=== PATIENT | male | born 1955 | race African-American/Black ===

== ENCOUNTER 2016-08-15 12:01 | Inpatient (IN) | payer OTHER ==
[2016-08-15 14:16] VITALS: BMI 28.4
--- NOTE | 2016-08-15 17:15 | HP ---
CIWA Score - CIWA Score Nausea/Vomitin-Mild Nausea/No Vomiting Muscle Tremors: 4-Moderate,w/Arms Extend Anxiety: 4-Mod. Anxious/Guarded Agitation: 4-Moderately Restless Paroxysmal Sweats: 2 Orientation: 3-Disoriented Date>2 days Tacttile Disturbances: 0-None Auditory Disturbances: 0-None Visual Disturbances: 0-None Headache: 0-None Present CIWA-Ar Total Score: 18 Admission ROS BHS - HPI Chief Complaint: withdrawal sx Allergies/Adverse Reactions: Allergies Allergy/AdvReac Type Severity Reaction Status Date / Time No Known Allergies Allergy Verified 08/15/16 15:57 History of Present Illness: 61 years old male with Exam Limitations: No Limitations - Ebola screening Have you traveled outside of the country in the last 21 days: No Have you had contact with anyone from an Ebola affected area: No Have you been sick,other than usual withdrawal symptoms: No Do you have a fever: No - Review of Systems Constitutional: Chills, Changes in sleep, Weight Stable EENT: reports: Hearing Loss (x 5 years x bilaterally), Dental Problems ( multiple teeth missing) Respiratory: reports: SOB with Exertion (brisk walking), Productive cough ( yellowish) Cardiac: reports: No Symptoms Reported GI: reports: Nausea, Poor Fluid Intake, Indigestion, Abdominal cramping : reports: Dysuria Musculoskeletal: reports: Back Pain Integumentary: reports: Dryness Neuro: reports: Tremors Endocrine: reports: No Symptoms Reported Hematology: reports: No Symptoms Reported Psychiatric: reports: Judgement Intact, Depressed Other Systems: Reviewed and Negative Patient History - Patient Medical History Hx Anemia: No Hx Asthma: No Hx Chronic Obstructive Pulmonary Disease (COPD): No Hx Cancer: No Hx Cardiac Disorders: No Hx Congestive Heart Failure: No Hx Hypertension: No Hx Hypercholesterolemia: No Hx Pacemaker: No HX Cerebrovascular Accident: No Hx Seizures: No Hx Diabetes: Yes (bgm-132) Hx Gastrointestinal Disorders: No Hx Liver Disease: Yes (cirrhosis of liver) Hx Genitourinary Disorders: No 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) Hx Renal Disease (ESRD): No Hx Thyroid Disease: No Hx Human Immunodeficiency Virus (HIV): No Hx Hepatitis C: Yes Hx Depression: Yes Hx Suicide Attempt: No Hx Bipolar Disorder: No Hx Schizophrenia: No - Patient Surgical History Past Surgical History: No - PPD History Previous Implant?: No Documented Results: Positive w/o proof Implanted On Prior [facility] Admission?: No PPD to be Administered?: No - Smoking Cessation Smoking history: Current every day smoker Have you smoked in the past 12 months: Yes Aproximately how many cigarettes per day: 20 Cigars Per Day: 0 Hx Chewing Tobacco Use: No Initiated information on smoking cessation: Yes 'Breaking Loose' booklet given: 08/15/16 - Substance & Tx. History Hx Alcohol Use: Yes Hx Substance Use: No Substance Use Type: Alcohol Hx Substance Use Treatment: Yes - Substances Abused Alcohol Route: Oral Frequency: Daily Amount used: vodka(1-2 pints) Age of first use: 16 Date of Last Use: 08/15/16 Family Disease History - Family Disease History Family Disease History: Diabetes: Mother, Other: Father (no contact) Admission Physical Exam BHS - Vital Signs Vital Signs: Vital Signs - 24 hr 08/15/16 14:15 Temperature 96.9 F L Pulse Rate 77 Respiratory 18 Rate Blood Pressure 194/99 - Physical General Appearance: Yes: Appropriately Dressed, Moderate Distress, Tremorous, Irritable, Sweating, Anxious HEENTM: Yes: Hearing grossly Normal, Normal ENT Inspection, Normocephalic, Normal Voice Respiratory: Yes: Chest Non-Tender, Lungs Clear, Normal Breath Sounds, No Respiratory Distress, No Accessory Muscle Use Neck: Yes: Supple, Trachea in good position Breast: Yes: Breasts Symetrical Cardiology: Yes: Regular Rhythm, Regular Rate, S1, S2 Abdominal: Yes: Non Tender, Soft, Increased Bowel Sounds Genitourinary: Yes: Within Normal Limits Back: Yes: Normal Inspection Musculoskeletal: Yes: full range of Motion, Gait Steady, Back pain Extremities: Yes: Normal Range of Motion, Non-Tender, Tremors Neurological: Yes: Alert, Motor Strength 5/5, Normal Response, Depressed Affect Integumentary: Yes: Dry, Warm, Clammy Lymphatic: Yes: Within Normal Limits - Diagnostic (1) Alcohol dependence with uncomplicated withdrawal Current Visit: Yes Status: Acute (2) Positive PPD, treated Current Visit: Yes Status: Resolved (3) Depression (emotion) Current Visit: Yes Status: Suspected Qualifiers: Depression Type: dysthymia Qualified Code(s): F34.1 - Dysthymic disorder (4) GERD (gastroesophageal reflux disease) Current Visit: Yes Status: Acute Qualifiers: Esophagitis presence: without esophagitis Qualified Code(s): K21.9 - Gastro-esophageal reflux disease without esophagitis (5) Diabetes mellitus type II, non insulin dependent Current Visit: Yes Status: Acute (6) Hepatitis C antibody test positive Current Visit: Yes Status: Resolved (7) Cirrhosis of liver Current Visit: Yes Status: Chronic Qualifiers: Hepatic cirrhosis type: alcoholic cirrhosis Cleared for Admission S - Detox or Rehab [facility] Level of Care: Medically Managed Detox Regimen/Protocol: Valium S Breath Alcohol Content Breath Alcohol Content: 0 Vital Signs - Vital Signs Pulse Rate: 61 Blood Pressure: 154/71 Urine Drug Screen - Results Drug Screen Negative: No Urine Drug Screen Results: BZO-Benzodiazepines
[2016-08-15] MEDS ORDERED: NICOTINE POLACRILEX 4 MG GUM BC PRN (17:28)
[2016-08-15] MEDS ORDERED: LOPERAMIDE HCL 2 MG CAPSULE PO PRN (17:28)
[2016-08-15] MEDS ORDERED: P-EPHED 60MG/TRIPROLIDI 2.5MG TABLET PO PRN (17:28)
[2016-08-15] MEDS ORDERED: guaiFENesin/D-METHORPHAN HB 10 ML UNIT-DOSE CUPS PO PRN (17:28)
[2016-08-15] MEDS ORDERED: ACETAMINOPHEN 325 MG TABLET (FP) PO PRN (17:28)
[2016-08-15] MEDS ORDERED: hydrOXYzine PAMOATE 50 MG CAPSULE (FP) PO PRN (17:28)
[2016-08-15] MEDS ORDERED: MAGNESIUM CITRATE 300 ML BOTTLE PO PRN (17:28)
[2016-08-15] MEDS ORDERED: MAG HYDROX/AL HYDROX/SIMETH 30 ML UNIT-DOSE CUP PO PRN (17:28)
[2016-08-15] MEDS ORDERED: MENTHOL/PHENOL 1 EACH UD MM PRN (17:28)
[2016-08-15] MEDS ORDERED: diphenhydrAMINE HCL 50 MG CAPSULE PO PRN (17:28)
[2016-08-15] MEDS ORDERED: MAGNESIUM HYDROX 2400MG/30ML ORAL SUSPENSION 30 ML CUP PO PRN (17:28)
[2016-08-15] MEDS ORDERED: COLLOIDAL OATMEAL 1 BAR EACH TP PRN (17:36)
[2016-08-15] MEDS ORDERED: ONDANSETRON *ODT* 4 MG TABLET SL PRN (17:37)
[2016-08-15] MEDS ORDERED: cloNIDine HCL 0.1 MG TABLET PO PRN (17:46)
[2016-08-15] MEDS ORDERED: diazePAM 5 MG TABLET PO ONE (18:00)
[2016-08-15] MEDS: diazePAM 5 MG TABLET PO SCH (22:25)
[2016-08-15] MEDS: THIAMINE HCL 100 MG TABLET (FP) PO SCH (22:25)
[2016-08-15] MEDS: MINERAL OIL/PETROLAT/WATER TOPICAL CREAM 454 GM JAR TP SCH (22:26)
[2016-08-15 23:35] LABS: URINE APPEARANCE CLEAR; URINE BILIRUBIN NEGATIVE (NEGATIVE); URINE BLOOD NEGATIVE (NEGATIVE); URINE COLOR AMBER; URINE GLUCOSE (UA) NEGATIVE (NEGATIVE); URINE KETONE NEGATIVE (NEGATIVE); URINE LEUK ESTERASE NEGATIVE (NEGATIVE); URINE NITRITE NEGATIVE (NEGATIVE); URINE PROTEIN NEGATIVE (NEGATIVE); URINE UROBILINOGEN 4.0 E.U/dl E.U./dl (0.2-1.0)
[2016-08-16] MEDS: diazePAM 5 MG TABLET PO SCH ×3 (06:00→22:32)
[2016-08-16] MEDS: metFORMIN HCL 500 MG TABLET (FP) PO SCH ×2 (06:22→17:29)
[2016-08-16 09:53] LABS: ALBUMIN 2.9 g/dl (3.4-5.0); ANION GAP 10 (8-16); BILIRUBIN,TOTAL 3.3 mg/dL (0.2-1.0); CALCIUM 8.5 mg/dL (8.5-10.1); CO2 27 mmol/L (21-32); CREATININE 0.7 mg/dL (0.7-1.3); GLUCOSE,RANDOM 99 mg/dL (74-106); SGOT/AST 37 U/L (15-37); SGPT/ALT 20 U/L (12-78); TOT PROT 7.6 g/dl (6.4-8.2)
[2016-08-16 09:54] LABS: ALK PHOS 113 U/L (45-117)
[2016-08-16 09:55] LABS: MCH 34.9 pg (25.7-33.7); MCHC 34.8 g/dl (32.0-35.9); MEAN CELL VOLUME 100.2 fl (80-96); MEAN PLT VOLUME 8.3 fl (7.5-11.1); PLATELET COUNT 68 K/MM3 (134-434); RDW 15.8 % (11.9-15.9); WHITE BLOOD COUNT 4.1 K/mm3 (4.0-10.0)
[2016-08-16 09:57] LABS: INR 1.68 (0.82-1.09); PROTHROMBIN TIME (PATIENT) 18.7 SEC (9.98-11.88)
[2016-08-16] MEDS: PRENATAL VITAMINS W/ FOLIC ACID TABLET (FP) PO SCH (10:35)
[2016-08-16] MEDS: TAMSULOSIN HCL 0.4 MG CAP.ER.24H (FP) PO SCH (10:35)
[2016-08-16] MEDS: diazePAM 5 MG TABLET PO PRN (10:35)
[2016-08-16] MEDS: ASPIRIN 81 MG CHEWABLE TABLETS PO SCH (10:35)
[2016-08-16] MEDS: BUPRENORPHINE/NALOXONE 8 MG/2 MG FILM PACKET SL SCH ×2 (10:36→11:00)
[2016-08-16] MEDS: NICOTINE 21 MG/24 HOURS TOPICAL PATCH TD SCH (10:37)
--- NOTE | 2016-08-16 10:58 | PN ---
[facility] CIWA - CIWA Score Nausea/Vomitin-No Nausea/No Vomiting Muscle Tremors: 4-Moderate,w/Arms Extend Anxiety: 3 Agitation: 4-Moderately Restless Paroxysmal Sweats: 3 Orientation: 0-Oriented Tacttile Disturbances: 0-None Auditory Disturbances: 0-None Visual Disturbances: 0-None Headache: 1-Very Mild CIWA-Ar Total Score: 15 BHS Progress Note (SOAP) Subjective: sweats shakes interrupted sleep irritable agitation body aches my skin itches at times Objective: 08/16/16 10:55 Vital Signs Temperature 99.4 F 08/16/16 10:42 Pulse Rate 88 08/16/16 10:42 Respiratory Rate 18 08/16/16 10:42 Blood Pressure 151/86 08/16/16 10:42 O2 Sat by Pulse Oximetry (%) Laboratory Tests 08/15/16 08/15/16 08/16/16 16:18 23:20 06:03 WBC RBC Hgb Hct MCV MCHC RDW Plt Count MPV INR Sodium Potassium Chloride Carbon Dioxide Anion Gap BUN Creatinine Creat Clearance w eGFR POC Glucometer 132 117 Random Glucose Calcium Total Bilirubin AST ALT Alkaline Phosphatase Total Protein Albumin Urine Color Malgorzata Urine Appearance Clear Urine pH 7.0 Ur Specific Morton 1.017 Urine Protein Negative Urine Glucose (UA) Negative Urine Ketones Negative Urine Blood Negative Urine Nitrite Negative Urine Bilirubin Negative Urine Urobilinogen 4.0 e.u/dl Ur Leukocyte Esterase Negative 08/16/16 08/16/16 08/16/16 07:00 07:00 07:00 WBC 4.1 RBC 3.61 L Hgb 12.6 Hct 36.2 MCV 100.2 H MCHC 34.8 RDW 15.8 Plt Count 68 L MPV 8.3 INR 1.68 H Sodium 143 Potassium 3.4 L Chloride 106 Carbon Dioxide 27 Anion Gap 10 BUN 7 Creatinine 0.7 Creat Clearance w eGFR > 60 POC Glucometer Random Glucose 99 Calcium 8.5 Total Bilirubin 3.3 H AST 37 ALT 20 Alkaline Phosphatase 113 Total Protein 7.6 Albumin 2.9 L Urine Color Urine Appearance Urine pH Ur Specific Morton Urine Protein Urine Glucose (UA) Urine Ketones Urine Blood Urine Nitrite Urine Bilirubin Urine Urobilinogen Ur Leukocyte Esterase low potassium 3.4; k-dur 40meq x 3 days benadryl 25mg prn awake/alert ambulating no acute distress Assessment: 08/16/16 10:58 withdrawal sx Plan: continue detox increase fluids kdur ordered benadryl 25mg prn pt may wear his sneakers
[2016-08-16] MEDS ORDERED: diphenhydrAMINE HCL 25 MG CAPSULE (FP) PO PRN (11:01)
[2016-08-16] MEDS: POTASSIUM CHLORIDE TABS 20 MEQ TABLET.ER (FP) PO SCH (11:06)
[2016-08-16] MEDS ORDERED: hydrOXYzine PAMOATE 50 MG CAPSULE (FP) PO ONE (11:12)
--- NOTE | 2016-08-16 13:25 | CONSULT ---
[facility] Psychiatric Consult - Data Date of interview: 08/16/16 Admission source: [facility] Identifying data: Patient is aproached for psychiatric interview.He refused.Nurse Ratna Dotson is made aware.She went to bedside in an effort to persuade the patient to reconsider.Mr Fairbanks stood firmly by his decision to ignore the psychiatrist.Consult is waived due to non-cooperation.
[2016-08-16] MEDS: THIAMINE HCL 100 MG TABLET (FP) PO SCH (22:32)
[2016-08-16] MEDS: MINERAL OIL/PETROLAT/WATER TOPICAL CREAM 454 GM JAR TP SCH (22:32)
--- NOTE | 2016-08-16 23:39 | EKG ---
Test Reason : Blood Pressure : / mmHG Vent. Rate : 063 BPM Atrial Rate : 063 BPM P-R Int : 152 ms QRS Dur : 088 ms QT Int : 476 ms P-R-T Axes : 077 075 054 degrees QTc Int : 487 ms NORMAL SINUS RHYTHM MINIMAL VOLTAGE CRITERIA FOR LVH, MAY BE NORMAL VARIANT PROLONGED QT ABNORMAL ECG NO PREVIOUS ECGS AVAILABLE Confirmed by REYNA ACEVEDO MD ([id number]) on 08/16/2016 11:39:07 PM Referred By: Confirmed By:REYNA ACEVEDO MD
[2016-08-17] MEDS: metFORMIN HCL 500 MG TABLET (FP) PO SCH ×2 (07:32→17:25)
[2016-08-17] MEDS: TAMSULOSIN HCL 0.4 MG CAP.ER.24H (FP) PO SCH (10:24)
[2016-08-17] MEDS: ASPIRIN 81 MG CHEWABLE TABLETS PO SCH (10:24)
[2016-08-17] MEDS: POTASSIUM CHLORIDE TABS 20 MEQ TABLET.ER (FP) PO SCH (10:24)
[2016-08-17] MEDS: PRENATAL VITAMINS W/ FOLIC ACID TABLET (FP) PO SCH (10:24)
[2016-08-17] MEDS: diazePAM 5 MG TABLET PO SCH ×2 (10:24→22:22)
[2016-08-17] MEDS: BUPRENORPHINE/NALOXONE 8 MG/2 MG FILM PACKET SL SCH (10:25)
[2016-08-17] MEDS: NICOTINE 21 MG/24 HOURS TOPICAL PATCH TD SCH (11:51)
--- NOTE | 2016-08-17 13:41 | PN ---
[facility] CIWA - CIWA Score Nausea/Vomitin Muscle Tremors: 3 Anxiety: 2 Agitation: 2 Paroxysmal Sweats: 3 Orientation: 0-Oriented Tacttile Disturbances: 1-Very Mild Itch/Numbness Auditory Disturbances: 0-None Visual Disturbances: 0-None Headache: 0-None Present CIWA-Ar Total Score: 13 S Progress Note (SOAP) Subjective: interrupted sleep, sweats shakes, tired Objective: 08/17/16 13:39 Vital Signs Temperature 97.7 F 08/17/16 13:01 Pulse Rate 87 08/17/16 13:01 Respiratory Rate 18 08/17/16 13:01 Blood Pressure 154/83 08/17/16 13:01 O2 Sat by Pulse Oximetry (%) Laboratory Tests 08/15/16 08/15/16 08/16/16 16:18 23:20 06:03 WBC RBC Hgb Hct MCV MCHC RDW Plt Count MPV INR Sodium Potassium Chloride Carbon Dioxide Anion Gap BUN Creatinine Creat Clearance w eGFR POC Glucometer 132 117 Random Glucose Calcium Total Bilirubin AST ALT Alkaline Phosphatase Total Protein Albumin Urine Color Malgorzata Urine Appearance Clear Urine pH 7.0 Ur Specific [place] 1.017 Urine Protein Negative Urine Glucose (UA) Negative Urine Ketones Negative Urine Blood Negative Urine Nitrite Negative Urine Bilirubin Negative Urine Urobilinogen 4.0 e.u/dl Ur Leukocyte Esterase Negative RPR Titer 08/16/16 08/16/16 08/16/16 07:00 07:00 07:00 WBC 4.1 RBC 3.61 L Hgb 12.6 Hct 36.2 MCV 100.2 H MCHC 34.8 RDW 15.8 Plt Count 68 L MPV 8.3 INR Sodium 143 Potassium 3.4 L Chloride 106 Carbon Dioxide 27 Anion Gap 10 BUN 7 Creatinine 0.7 Creat Clearance w eGFR > 60 POC Glucometer Random Glucose 99 Calcium 8.5 Total Bilirubin 3.3 H AST 37 ALT 20 Alkaline Phosphatase 113 Total Protein 7.6 Albumin 2.9 L Urine Color Urine Appearance Urine pH Ur Specific [place] Urine Protein Urine Glucose (UA) Urine Ketones Urine Blood Urine Nitrite Urine Bilirubin Urine Urobilinogen Ur Leukocyte Esterase RPR Titer Nonreactive 08/16/16 08/16/16 08/17/16 07:00 16:19 06:21 WBC RBC Hgb Hct MCV MCHC RDW Plt Count MPV INR 1.68 H Sodium Potassium Chloride Carbon Dioxide Anion Gap BUN Creatinine Creat Clearance w eGFR POC Glucometer 139 128 Random Glucose Calcium Total Bilirubin AST ALT Alkaline Phosphatase Total Protein Albumin Urine Color Urine Appearance Urine pH Ur Specific [place] Urine Protein Urine Glucose (UA) Urine Ketones Urine Blood Urine Nitrite Urine Bilirubin Urine Urobilinogen Ur Leukocyte Esterase RPR Titer pt aox3 in nad ambulating Assessment: 08/17/16 13:40 withdrawal sx's cirhosis -prolonged inr 08/17/16 13:40 Plan: cont. detox increase fluids d/c tylenol
[2016-08-17] MEDS: THIAMINE HCL 100 MG TABLET (FP) PO SCH (22:22)
[2016-08-17] MEDS: MINERAL OIL/PETROLAT/WATER TOPICAL CREAM 454 GM JAR TP SCH (22:33)
[2016-08-18] MEDS: diazePAM 5 MG TABLET PO PRN (05:13)
[2016-08-18] MEDS: metFORMIN HCL 500 MG TABLET (FP) PO SCH ×2 (07:42→17:50)
--- NOTE | 2016-08-18 10:16 | PN ---
S Progress Note (SOAP) Subjective: ALERT,IRRITABLE,ANXIOUS,INTERRUPTED SLEEP Objective: 08/18/16 10:16 Laboratory Last Values WBC 4.1 K/mm3 (4.0-10.0) 08/16/16 07:00 RBC 3.61 M/mm3 (4.00-5.60) L 08/16/16 07:00 Hgb 12.6 GM/dL (11.7-16.9) 08/16/16 07:00 Hct 36.2 % (35.4-49) 08/16/16 07:00 MCV 100.2 fl (80-96) H 08/16/16 07:00 MCHC 34.8 g/dl (32.0-35.9) 08/16/16 07:00 RDW 15.8 % (11.9-15.9) 08/16/16 07:00 Plt Count 68 K/MM3 (134-434) L 08/16/16 07:00 MPV 8.3 fl (7.5-11.1) 08/16/16 07:00 INR 1.68 (0.82-1.09) H 08/16/16 07:00 Sodium 143 mmol/L (136-145) 08/16/16 07:00 Potassium 3.4 mmol/L (3.5-5.1) L 08/16/16 07:00 Chloride 106 mmol/L (98-107) 08/16/16 07:00 Carbon Dioxide 27 mmol/L (21-32) 08/16/16 07:00 Anion Gap 10 (8-16) 08/16/16 07:00 BUN 7 mg/dL (7-18) 08/16/16 07:00 Creatinine 0.7 mg/dL (0.7-1.3) 08/16/16 07:00 Creat Clearance w eGFR > 60 (>60) 08/16/16 07:00 POC Glucometer 124 UNITS (()) 08/18/16 07:09 Random Glucose 99 mg/dL (74-106) 08/16/16 07:00 Calcium 8.5 mg/dL (8.5-10.1) 08/16/16 07:00 Total Bilirubin 3.3 mg/dL (0.2-1.0) H 08/16/16 07:00 AST 37 U/L (15-37) 08/16/16 07:00 ALT 20 U/L (12-78) 08/16/16 07:00 Alkaline Phosphatase 113 U/L (45-117) 08/16/16 07:00 Total Protein 7.6 g/dl (6.4-8.2) 08/16/16 07:00 Albumin 2.9 g/dl (3.4-5.0) L 08/16/16 07:00 Urine Color Malgorzata 08/15/16 23:20 Urine Appearance Clear 08/15/16 23:20 Urine pH 7.0 (5.0-8.0) 08/15/16 23:20 Ur Specific [place] 1.017 (1.001-1.035) 08/15/16 23:20 Urine Protein Negative (NEGATIVE) 08/15/16 23:20 Urine Glucose (UA) Negative (NEGATIVE) 08/15/16 23:20 Urine Ketones Negative (NEGATIVE) 08/15/16 23:20 Urine Blood Negative (NEGATIVE) 08/15/16 23:20 Urine Nitrite Negative (NEGATIVE) 08/15/16 23:20 Urine Bilirubin Negative (NEGATIVE) 08/15/16 23:20 Urine Urobilinogen 4.0 e.u/dl E.U./dl (0.2-1.0) 08/15/16 23:20 Ur Leukocyte Esterase Negative (NEGATIVE) 08/15/16 23:20 RPR Titer Nonreactive (NONREACTIVE) 08/16/16 07:00 Assessment: 08/18/16 10:16 WITHDRAWAL SYMPTOM Plan: CONTINUE DETOX,CONTINUE KDUR,DISCHARGE IN AM
[2016-08-18] MEDS: ASPIRIN 81 MG CHEWABLE TABLETS PO SCH (10:27)
[2016-08-18] MEDS: TAMSULOSIN HCL 0.4 MG CAP.ER.24H (FP) PO SCH (10:27)
[2016-08-18] MEDS: POTASSIUM CHLORIDE TABS 20 MEQ TABLET.ER (FP) PO SCH (10:27)
[2016-08-18] MEDS: diazePAM 5 MG TABLET PO SCH ×2 (10:29→22:21)
[2016-08-18] MEDS: PRENATAL VITAMINS W/ FOLIC ACID TABLET (FP) PO SCH (10:29)
[2016-08-18] MEDS: NICOTINE 21 MG/24 HOURS TOPICAL PATCH TD SCH (10:29)
[2016-08-18] MEDS: BUPRENORPHINE/NALOXONE 8 MG/2 MG FILM PACKET SL SCH (10:29)
[2016-08-18] MEDS: THIAMINE HCL 100 MG TABLET (FP) PO SCH (22:21)
[2016-08-18] MEDS: MINERAL OIL/PETROLAT/WATER TOPICAL CREAM 454 GM JAR TP SCH (22:22)
[2016-08-19 06:33] VITALS: TEMP 97.9
[2016-08-19] MEDS: metFORMIN HCL 500 MG TABLET (FP) PO SCH (07:59)
--- NOTE | 2016-08-19 08:26 | PN ---
S Progress Note (SOAP) Subjective: ALERT,NO COMPLAINT Objective: 08/19/16 08:24 Vital Signs Temperature 97.9 F 08/19/16 06:32 Pulse Rate 80 08/19/16 06:32 Respiratory Rate 18 08/19/16 06:32 Blood Pressure 114/69 08/19/16 06:32 O2 Sat by Pulse Oximetry (%) BGM 120 Assessment: 08/19/16 08:24 DETOX COMPLETED,NO WITHDRAWAL SYMPTOM Plan: DISCHARGE TODAY,FOLLOW UP WITH AFTER CARE PROGRAM ARRANGEMENT
--- NOTE | 2016-08-19 08:32 | DS ---
[facility] Detox Discharge Summary Admission Date: 08/15/16 Discharge Date: 08/19/16 - History Present History: Alcohol Dependence Pertinent Past History: GERD TYPE 2 DM HEPATITIS C CIRRHOSIS OF LIVER POSITIVE PPD DEPRESSION - Physical Exam Results Vital Signs: Vital Signs Temperature 97.9 F 08/19/16 06:32 Pulse Rate 80 08/19/16 06:32 Respiratory Rate 18 08/19/16 06:32 Blood Pressure 114/69 08/19/16 06:32 O2 Sat by Pulse Oximetry (%) Pertinent Admission Physical Exam Findings: WITHDRAWAL SYMPTOM - Treatment Hospital Course: Detox Protocol Followed, Detoxed Safely, Responded well, Discharged Condition Good Patient has Accepted a Rehab Referral to: [facility] - Medication Discharge Medications: Ambulatory Orders Ammonium Lactate Lotion [Lac-Hydrin 12% Lotion -] 1 applic TP ASDIR 08/15/16 Buprenorphine HCl/Naloxone HCl [Suboxone 8 mg-2 mg Sl Tablets] 2 tablet SL DAILY 08/15/16 Folic Acid - 1 mg PO DAILY 08/15/16 Multivitamins [Tab-A-Vit -] 1 tab PO DAILY 08/15/16 Thiamine Mononitrate [Vitamin B-1] 100 mg PO DAILY 08/15/16 Aspirin [ASA -] 81 mg PO DAILY #30 tab 08/19/16 Metformin HCl [Glucophage -] 500 mg PO BID #60 tab 08/19/16 Tamsulosin HCl [Flomax -] 0.4 mg PO DAILY #30 tab 08/19/16 - Diagnosis (1) Alcohol dependence with uncomplicated withdrawal Current Visit: Yes Status: Acute (2) Diabetes mellitus type II, non insulin dependent Current Visit: Yes Status: Acute (3) GERD (gastroesophageal reflux disease) Current Visit: Yes Status: Acute Qualifiers: Esophagitis presence: without esophagitis Qualified Code(s): K21.9 - Gastro-esophageal reflux disease without esophagitis (4) Cirrhosis of liver Current Visit: Yes Status: Chronic Qualifiers: Hepatic cirrhosis type: alcoholic cirrhosis (5) Depression (emotion) Current Visit: Yes Status: Suspected Qualifiers: Depression Type: dysthymia Qualified Code(s): F34.1 - Dysthymic disorder (6) Hepatitis C antibody test positive Current Visit: Yes Status: Resolved (7) Positive PPD, treated Current Visit: Yes Status: Resolved (8) Hypokalemia Current Visit: Yes Status: Acute - AMA Did Patient Leave Against Medical Advice: No
[2016-08-19] MEDS: TAMSULOSIN HCL 0.4 MG CAP.ER.24H (FP) PO SCH (09:42)
[2016-08-19] MEDS: BUPRENORPHINE/NALOXONE 8 MG/2 MG FILM PACKET SL SCH (09:42)
[2016-08-19] MEDS: PRENATAL VITAMINS W/ FOLIC ACID TABLET (FP) PO SCH (09:42)
[2016-08-19] MEDS: ASPIRIN 81 MG CHEWABLE TABLETS PO SCH (09:42)
[2016-08-19] MEDS: POTASSIUM CHLORIDE TABS 20 MEQ TABLET.ER (FP) PO SCH (09:42)
[2016-08-19 09:48] VITALS: BP 138/73; PULSE 64
[2016-08-19] MEDS ORDERED: diazePAM 5 MG TABLET PO SCH (10:00)
== END 2016-08-19 10:00 | disposition home or self-care (01) | DRG 775 ==
LOC: YASAS 12:01 → Y6N 16:48
PROVIDERS: ADMIT Internal Medicine Addiction Medicine; ATTEND Internal Medicine Addiction Medicine
PROC: HZ2ZZZZ Detoxification Services for Substance Abuse Treatment (ICD-10-PCS; principal; 2016-08-19)
DX: F10.230 Alcohol dependence with withdrawal, uncomplicated (principal); F34.1 Dysthymic disorder; E11.9 Type 2 diabetes mellitus without complications; Z79.84 Long term (current) use of oral hypoglycemic drugs; K70.30 Alcoholic cirrhosis of liver without ascites; K21.9 Gastro-esophageal reflux disease without esophagitis; E87.6 Hypokalemia; B18.2 Chronic viral hepatitis C; R76.11 Nonspecific reaction to tuberculin skin test without active tuberculosis
CPT/HCPCS: 36415; 71020-TC; 80053; 81003; 85027; 85610; 86593; 93005; 93010